=== PATIENT | male | born 1995 | race Hispanic/Latino ===

== ENCOUNTER 2020-03-01 06:34 | Outpatient (CLI) | payer OTHER ==
[2020-03-01 14:57] LABS: Hemoglobin 15.4 g/dL (14.0-18.0); Mean Corpuscular Hemoglobin 29.3 PG (27.0-33.0); Mean Corpuscular Volume 88.8 fl (80.0-100.0); Mean Platelet Volume 11.7 fl (7.4-10.4); Platelet Count 353 10x3/uL (130-400); RBC Distribution Width 12.7 % (11.5-14.5); Red Blood Cell (RBC) Count 5.26 10x6/uL (4.40-5.80); White Blood Cell (WBC) Count 14.8 10x3/uL (4.5-11.0)
[2020-03-01 15:14] LABS: Anion Gap 16 mmol/L (10-20); BUN (Urea Nitrogen) 8 mg/dL (8.9-20.6); Calc. Creatinine Clearance 0 mL/min (70-130); Calcium 9.5 mg/dL (7.8-10.44); Carbon Dioxide 23 mmol/L (22-29); Chloride 104 mmol/L (98-107); Estimated GFR-MDRD Greater than 90; Glucose 192 mg/dL (70-105); Potassium 4.6 mmol/L (3.5-5.1); Sodium 138 mmol/L (136-145)
[2020-03-01 15:20] LABS: PTT 25.1 sec (22.0-33.0); Prothrombin Time 10.5 sec (9.5-12.1)
[2020-03-02 03:16] LABS: SARS-CoV-2 MS2 Positive; SARS-CoV-2 N Gene Negative; SARS-CoV-2 S Gene Negative; SARS-CoV-2 by NAA Not Detected (NotDetected); SARS-CoV-2 orf1ab Negative
--- NOTE | 2020-03-06 08:31 | EKG ---
Test Reason : Blood Pressure : / mmHG Vent. Rate : 112 BPM Atrial Rate : 112 BPM P-R Int : 148 ms QRS Dur : 096 ms QT Int : 322 ms P-R-T Axes : 058 104 018 degrees QTc Int : 439 ms Sinus tachycardia Rightward axis Borderline ECG No previous ECGs available Confirmed by BRYANNA MORIN, ABIGAIL ([id number]) on 03/06/2020 8:31:16 AM Referred By: ENRIKE Confirmed By:ABIGAIL GOULD MD
== END 2020-03-01 06:35 | disposition home or self-care (01) ==
LOC: LABBT 06:34
PROVIDERS: ATTEND Surgery
DX: Z01.818 Encounter for other preprocedural examination (principal); Z20.828 Contact with and (suspected) exposure to other viral communicable diseases; D32.9 Benign neoplasm of meninges, unspecified
CPT/HCPCS: 80048; 85027; 85610; 85730; 87635; 93005; 93010; U0003

== ENCOUNTER 2020-03-01 07:08 | Outpatient (CLI) | payer OTHER ==
--- NOTE | 2020-03-01 09:27 | RAD ---
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 At 9:19 AM 03/01/[address] Dr[address] Blue regarding getting patient scheduled for reprogramming of shunt if necessary. At 9:19 AM 03/01/2020 Dr. Blue immediately replied back acknowledgment with text. FINDINGS: WAREHOUSE SUPER[employer] 3RD SHIFT shunt catheter enters through a right-sided leroy hole near the right coronal suture, with distal t ip near midline intracranially. It descends the soft tissues of the right neck, right chest, and right side of abdomen, and the dista l portion is looped over the pelvis. The distal most tip is excluded from the [id number]. No evidence of discontinuity involving the radiopaque portions. IMPRESSION: No disruption of the ventriculoperitoneal shunt catheter identified.
--- NOTE | 2020-03-01 11:21 | MRI ---
MRI BRAIN WITH AND WITHOUT CONTRAST: DATE: 03/01/2020 HISTORY: 24-year-old male with meningioma and intracranial shunt. D32.9 and Z98.2 COMPARISON: None TECHNIQUE: Multiplanar, multisequence MRI of the brain performed pre- and post-IV injection of gadolinium based contrast agent. FINDINGS: There is a large, approximately 4.5 x 4.5 x 6.2 cm right posterior parieto-occipital mass with lobula r margins, slightly heterogeneous diffuse enhancement (2 small focal regions of central nonenhancement are present), which markedly displaces and distorts the adjacent right parietal and oc cipital parenchyma. It compresses, severely narrows, and anteriorly displaces and distorts the posterior body, trigone, and occipital horn of the right lateral ventricle. This results in approxima tely 0.5 cm right to left midline shift of the septum pellucidum. It causes a large region of vasogenic edema anterior and superior to it, involving the right fonseca r adiata, right centrum semiovale, which extends to the subcortical white matter of the right cerebral vertex, involving frontal and parietal regions. It broadly abuts and distorts and slightly d isplaces to the left, the posterior interhemispheric falx, and the posterior aspect of the superior sagittal sinus, which it possibly partially invades (axial image 81 of 192, series 9), without occlud ing it. In the contralateral left parasagittal anterior upper frontal region, there is a 2.3 x 2.3 x 1.9 cm s moothly circumscribed slightly heterogeneously enhancing mass which broadly abuts and slightly distorts the anterior interhemispheric falx and the superior sagittal sinus. It mildly displaces ligia cent left paramedian frontal lobe parenchyma, but does not cause vasogenic edema. In the posterior fossa, there is bilateral cerebellar hemispheric atrophy. There is gliosis and encep halomalacia lining the right and left sides of a surgical defect of the vermis, which communicates with a widened fourth ventricle. There is no obstructive hydrocephalus. No evidence of recent or remote intra-axial supratentorial hem orrhage. Multiple tiny foci of hemosiderin stains are present in the posterior fossa, related to previous micr ohemorrhages. There is a thin linear signal void from approximately the region of the right coronal suture, through the right frontal centrum semiovale, with distal tip in the right frontal horn slightly anterior to the right side of foramen of Monro. IMPRESSION: 1) moderately large right parieto-occipital mass, presumably a meningioma with somewhat aggressive fe atures, causing significant mass effect, significant vasogenic edema, and extrinsic compression and questionable partial invasion without occlusion, of the posterior aspect of the superior sagittal sin us. This may represent an aggressive or semiaggressive meningioma. 2) a smaller left paramedian frontal meningioma which does not cause vasogenic edema. 3) postsurgical changes in the posterior fossa with probable resection of prior tumor in that locatio n. No evidence of residual or recurrent neoplastic tissue in the posterior fossa. 4) atrophy of cerebellum, and absence of much of the vermis, presumably due to resection 5) ventriculoperitoneal shunt catheter.
--- NOTE | 2020-03-01 11:32 | MRI ---
Magnetic resonance venogram MRV noncontrast head: 03/01/2020 HISTORY: 24-year-old male with meningioma. TECHNIQUE: After application of inferior saturation band at the skull base, 2-D [id number] coronal acquisiti on through the brain performed. Source images and 3-D MIP reconstructions evaluated. FINDINGS: There is absence of flow related signal throughout the entire superior sagittal sinus. There are mult iple surrounding collateral vessels. There is also absence of flow related signal throughout the central portion of the right transverse a nd sigmoid sinuses, and slightly weak flow related signal in the upper portion of the right internal jugular vein. There is weak flow related signal around the filling defect of the right transverse and right sigmoid sinuses. There is good flow related signal involving the inferior sagittal sinus, internal cerebral veins, vei n of Chris, and straight sinus. 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 2) there is flow along recanalized or surrounding peripheral channels paralleling the chronically thr ombosed right transverse and right sigmoid sinuses.
[2020-03-01] MEDS ORDERED: Magnevist 469MG/ML 20 ML VIAL ONE (15:24)
== END 2020-03-01 07:09 | disposition home or self-care (01) ==
LOC: MRI 07:08 → RAD 07:09
PROVIDERS: ATTEND Surgery
DX: D32.9 Benign neoplasm of meninges, unspecified (principal); Z98.2 Presence of cerebrospinal fluid drainage device; Z01.818 Encounter for other preprocedural examination; Z20.828 Contact with and (suspected) exposure to other viral communicable diseases
CPT/HCPCS: 70544; 70553; 75809; 80048; 85027; 85610; 85730; 87635; 93005; 93010; A9579; U0003

== ENCOUNTER 2020-03-01 12:00 | Inpatient (IN) | payer OTHER ==
[2020-03-05] MEDS ORDERED: Bacitracin Zinc Ointment 30 gm TUBE ONE (06:53)
[2020-03-05] MEDS ORDERED: levETIRAcetam 500 MG/100 ML PREMIX BAG ONE (06:57)
[2020-03-05] MEDS ORDERED: levETIRAcetam in NS 100 ML ONE (06:57)
[2020-03-05] MEDS ORDERED: Propofol 1,000 MG/100 ML VIAL IV ONE (06:57)
[2020-03-05] MEDS ORDERED: Albumin 5% 500 ML ONE (06:57)
[2020-03-05] MEDS ORDERED: Fentanyl 250 MCG/5 ML VIAL ONE (06:58)
[2020-03-05] MEDS ORDERED: Sodium Chloride 0.9% 0 ML ONE (07:03)
[2020-03-05] MEDS ORDERED: Thrombin 5000 UNITS/5 ML VIAL ONE (07:03)
[2020-03-05] MEDS ORDERED: Midazolam HCl 2 mg/2 ml Vial ONE (07:10)
[2020-03-05] MEDS ORDERED: Famotidine/PF 20 mg/2ml Vial ONE (07:28)
[2020-03-05] MEDS ORDERED: Albuterol Sulfate HFA (OR ONLY) ONE (09:28)
[2020-03-05] MEDS ORDERED: PROPOFOL 200 MG/20 ML VIAL ONE (09:28)
[2020-03-05] MEDS ORDERED: Esmolol 100 MG/10 ML VIAL ONE (09:28)
[2020-03-05] MEDS ORDERED: Metoprolol Tartrate 5 MG/5 ML VIAL ONE ×2 (09:28→10:13)
[2020-03-05] MEDS ORDERED: Rocuronium Bromide 10 MG/ML (10ML VIAL) ONE (09:28)
[2020-03-05] MEDS ORDERED: Dexamethasone 20 MG/5 ML VIAL ONE (09:28)
[2020-03-05] MEDS ORDERED: Lidocaine 1% PF 5 ML VIAL ONE (09:28)
[2020-03-05] MEDS ORDERED: Ondansetron PF 4 MG/2 ML Vial ONE (09:28)
[2020-03-05] MEDS ORDERED: Morphine Sulfate 2 MG/ML SYRINGE SLOW IVP PRN (10:01)
[2020-03-05] MEDS ORDERED: HYDROmorphone 2 MG/ML VIAL SLOW IVP PRN (10:01)
[2020-03-05] MEDS ORDERED: PACU-Morphine 4MG/ML VIAL SLOW IVP PRN (10:01)
[2020-03-05] MEDS ORDERED: Promethazine HCl 25 MG/ML VIAL IM PRN (10:01)
[2020-03-05] MEDS ORDERED: Promethazine HCl 25 MG/ML VIAL SLOW IVP PRN (10:01)
[2020-03-05] MEDS ORDERED: Ondansetron HCl/PF 4 MG/2 ML Vial IVP PRN (10:01)
[2020-03-05] MEDS ORDERED: Promethazine 25 MG TAB PO PRN (10:07)
[2020-03-05] MEDS ORDERED: Docusate 100 MG CAP PO PRN (10:07)
[2020-03-05] MEDS ORDERED: Acetaminophen 325 MG TAB PO PRN (10:07)
[2020-03-05] MEDS ORDERED: Mag-Al 1200 mg/1200 mg/30 ML UDCUP PO PRN (10:07)
[2020-03-05] MEDS ORDERED: SUGAMMADEX SODIUM 200 MG/2 ML VIAL ONE ×2 (10:13→10:18)
[2020-03-05] MEDS ORDERED: traMADol HCl 50 MG TAB PO PRN (10:16)
[2020-03-05] MEDS ORDERED: Fentanyl 100 MCG/2 ML VIAL ONE (10:19)
--- NOTE | 2020-03-05 11:41 | RAD ---
PORTABLE CHEST: Date; 03/05/2020 HISTORY: Central line placement. FINDINGS: Heart size is within normal limits for portable technique. Left-sided central line has been placed. C atheter tip overlies the superior vena cava/right atrium junction. No pneumothorax. Atelectatic collazo es are seen in the lung bases. IMPRESSION: Placement of left-sided central line. No signs of pneumothorax. POS: AH
[2020-03-05] MEDS ORDERED: Dexamethasone 4 MG TAB PO SCH (12:00)
--- NOTE | 2020-03-05 12:41 | OP ---
DATE OF PROCEDURE: 03/05/2020 LOCATION: OR 11. 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 PROCEDURES PERFORMED: 1. Stereotactic right supratentorial craniotomy for occipital falcine meningioma resection. 2. Use of stereotactic guidance for surgical resection. DESCRIPTION OF PROCEDURE: After informed consent was obtained from the patient and his family, the patient was brought to the OR. Proper patient, pause, and identification were carried out. He was placed under excellent general endotracheal anesthesia and positioned supine on the OR table with his overall body position in a semi-reclined position. [place] sadia was secured to his skull and his cervical spine was slightly flexed to allow for a right parasagittal approach to the right occipital region. Hair was clipped in this area. The Ru[place] was secured. Stereotactic registration occurred with excellent accuracy. Linear saul was drawn out. This region was sterilely cleansed, prepared, and draped. Proper patient, pause, and identification were carried out. We were careful to avoid the shunt obviously with his sadia security. The parasagittal incision was then opened. A circular craniotomy was performed with 2 leroy holes placed over the superior sagittal sinus. The dura was then opened. mass was immediately identified and circumferentially around the mass and also devascularized it off of the falx and lateral wall of superior sagittal sinus. I had excellent decompression of the brain and complete resection of the tumor. The dura was then flapped back in place and the dura approximated and bone secured with titanium plates and screws. The scalp was then closed in anatomic layers. The patient emerged from anesthesia. Job ID: [id number]
[2020-03-05] MEDS: Morphine 2 MG/ML VIAL SLOW IVP PRN ×2 (14:16→19:13)
[2020-03-05] MEDS: CEFAZOLIN 2 GM in Premix Bag 1 BAG IVPB SCH ×2 (14:17→22:21)
[2020-03-05] MEDS: Sodium Chloride 0.9% 1,000 ML IV SCH (14:17)
[2020-03-05] MEDS: Ondansetron PF 4 MG/2 ML Vial IVP PRN (14:28)
[2020-03-05 15:39] VITALS: BMI 31.9
[2020-03-05] MEDS: levETIRAcetam 500 MG TAB PO SCH (20:39)
[2020-03-05] MEDS: Dexamethasone 4 MG TAB PO SCH (20:40)
[2020-03-05] MEDS ORDERED: levETIRAcetam 500 MG TAB PO SCH (21:00)
[2020-03-06] MEDS: Dexamethasone 4 MG TAB PO SCH ×4 (01:51→21:01)
[2020-03-06] MEDS: Morphine 2 MG/ML VIAL SLOW IVP PRN ×3 (03:08→13:50)
[2020-03-06] MEDS: Sodium Chloride 0.9% 1,000 ML IV SCH ×2 (04:32→13:50)
[2020-03-06 05:08] LABS: #Basophils 0.1 thou/uL (0.0-0.2); #Monocytes 1.3 thou/uL (0.11-0.59); #Neutrophils 16.1 thou/uL (1.40-6.50); %Basophils 0.4 % (0.0-1.0); %Eosinophils 0.1 % (0.0-10.0); %Lymphocytes 10.1 % (21.0-51.0); %Monocytes 6.8 % (0.0-10.0); %Neutrophils 82.6 % (42.0-75.0); Hemoglobin 14.2 g/dL (14.0-18.0); Mean Corpuscular HGB CONC 33.6 g/dL (32.0-36.0); Mean Corpuscular Hemoglobin 30.4 pg (27.0-31.0); Mean Corpuscular Volume 90.6 fL (78.0-98.0); Mean Platelet Volume 9.1 fL (7.4-10.4); Platelet Count 287 thou/uL (130-400); RBC Distribution Width 12.2 % (11.5-14.5); Red Blood Cell (RBC) Count 4.65 mill/uL (4.70-6.10); White Blood Cell (WBC) Count 19.5 thou/uL (4.8-10.8)
[2020-03-06 05:28] LABS: Anion Gap 14 mmol/L (10-20); BUN (Urea Nitrogen) 12 mg/dL (8.9-20.6); Calc. Creatinine Clearance 160 mL/min (70-130); Calcium 8.4 mg/dL (7.8-10.44); Carbon Dioxide 24 mmol/L (22-29); Chloride 105 mmol/L (98-107); Estimated GFR-MDRD Greater than 90; Glucose 147 mg/dL (70-105); Potassium 3.8 mmol/L (3.5-5.1); Sodium 139 mmol/L (136-145)
[2020-03-06] MEDS: Levothyroxine 150 MCG TAB PO SCH (06:01)
[2020-03-06] MEDS: CEFAZOLIN 2 GM in Premix Bag 1 BAG IVPB SCH ×3 (06:02→23:27)
[2020-03-06] MEDS: levETIRAcetam 500 MG TAB PO SCH ×2 (08:06→21:01)
[2020-03-06] MEDS: HYDROcodone/Acetaminophen 7.5/325 mg Tablet PO PRN ×2 (08:07→22:21)
--- NOTE | 2020-03-06 08:13 | CT ---
PRELIMINARY REPORT/[facility]/EMERGENCY AFTER HOURS PROCEDURE EXAM: CT Head Without Intravenous Contrast. CLINICAL HISTORY: S/p craniotomy TECHNIQUE: Axial computed tomography images of the head/brain without intravenous contrast. COMPARISON: None provided. FINDINGS: There has been a right posterior parietal craniotomy with surgical change including moderate bilatera l pneumocephalus. Minimal subarachnoid hemorrhage at the surgical site in the posterior left parietal lobe is noted. Shunt catheter tubing identified in the right anterior horn lateral ventricl e. The ventricles are decompressed. There is moderate edema identified along the right cerebral hemisphere. No pre-operative studies are available for review. Continued follow-up is recommended. IMPRESSION: Postoperative changes including right posterior parietal craniotomy with moderate edema and slight munoz barachnoid hemorrhage along the surgical site. Moderate bilateral frontal pneumocephalus. Right shunt catheter tubing is noted.. ELECTRONICALLY SIGNED BY: Anamaria Rivas DO Mar 06, 2020 3:56:54 AM HOUSEHOLD COORDINATOR This report is intended for review by the ordering physician only, in accordance of law. If you recei ve this report in error, please call [facility] at [phone]. FINAL REPORT Emergent after hours noncontrast CT head HISTORY: Postcraniotomy. COMPARISON: MRI brain on 03/01/2020 IMPRESSION: 1. Evidence of right parietal craniotomy defect with excision of the right parietal meningioma. Decre ased attenuation and gas as well as small amount of hemorrhage is seen in the region of the operative bed. 2. Evidence of pneumocephalus anteriorly as well as near the vertex and posteriorly on the right. 3. Prominent area of vasogenic edema in the right frontal parietal lobe which was also seen on the pr ior MRI exam. 4. A ventriculoperitoneal shunt catheter entering via right frontal approach is again seen with tip t erminating near the foramen of [place]. Again noted is effacement of the right lateral ventricle. 5. Left anterior frontal parafalcine meningioma is present but better visualized on post enhanced MRI imaging. 7. Prominent atrophy of each cerebellar hemisphere with a defect seen along the left cerebellar vermi s. Occipital craniotomy defect is seen. 6. Sulcal effacement right cerebral hemisphere likely due to a combination of postoperative changes a nd vasogenic edema. 8. Findings are in agreement with pulmonary report by [facility]. Transcribed Date/Time: 03/06/2020 8:49 AM
--- NOTE | 2020-03-06 11:05 | PRG ---
DATE OF SERVICE: 03/06/2020 Mr. Farmer is postoperative day #1 following right occipital stereotactic craniotomy for tumor resection. Preliminary pathology was consistent with benign meningioma, although we are awaiting final pathology. CT is satisfactory for a gross total resection. The heterogeneity anterior to the resection cavity was compressed intra-axial brain correlating on the preoperative MRI. The patient is at his baseline with a blunted affect. This is Turkmen-speaking only, but does follow commands with no apparent neurologic deficit. He does however have a left-sided visual field cut as expected. We will plan for transfer to the floor and have physical therapy begin working with him. He is on Decadron and his hemodynamics are stable as expected. He has leukocytosis due to the Decadron. We will get an ultrasound of the lower extremities today given his meningioma and medullary blastoma. Job ID: [id number]
[2020-03-06] MEDS: Ondansetron PF 4 MG/2 ML Vial IVP PRN (12:05)
--- NOTE | 2020-03-06 13:14 | ULT ---
EXAM: Bilateral lower extremity venous Doppler US HISTORY: bilateral lower extremity edema and pain. Postop immobility FINDINGS: Grayscale, color-flow, Doppler evaluation, spectral analysis of the bilateral lower extremities venou s structures is performed with 2-D imaging. The bilateral common femoral, superficial femoral, popliteal, posterior tibial, proximal greater saphenous and profunda femoral veins are imaged. There is normal luminal compressibility, flow, and augmentation in the visualized deep venous structu res of the bilateral lower extremities. IMPRESSION: No evidence of a deep vein thrombosis in either lower extremity.
[2020-03-06] MEDS ORDERED: Prevnar 13-Val Conj/PF 0.5 ML SYRINGE IM ONE (15:45)
--- NOTE | 2020-03-06 19:13 | CON ---
DATE OF CONSULTATION: 03/06/2020 HISTORY OF PRESENT ILLNESS: Mr. Farmer is a gentleman, who is in the Critical Care Unit after an operative procedure. Apparently, he had a radiation-induced falcine meningioma with mass effect, requiring right stereotactic supratentorial craniotomy for meningioma resection. It is felt to be related to medulloblastoma at the age of 3. He has a history of hydrocephalus with shunt. He also had craniospinal radiation. Surgery was successful. He answers questions slowly. PHYSICAL EXAMINATION: VITAL SIGNS: He is afebrile. Heart rates in 70s, blood pressure 121/87, respiratory rates in the teens, oximetry is 98. HEENT: His head is bandaged. NECK: Supple. LUNGS: Clear. HEART: Regular rhythm. ABDOMEN: Soft and nontender. EXTREMITIES: Without clubbing, cyanosis, or edema. LABORATORY DATA: White count 19.5, hemoglobin 14.2, platelets 287. Electrolytes are normal. IMPRESSION: Status post craniotomy, clinically stable at this time, adequately protecting his airway. We will follow while he is in the ICU. This is a 70 min consult with greater than 50% of the time spent on the unit with coordination of care. Job ID: [id number] MTDD
[2020-03-06] MEDS: Acetaminophen/Codeine 30-300mg Tablet PO PRN (23:27)
[2020-03-07] MEDS: Sodium Chloride 0.9% 1,000 ML IV SCH ×2 (02:36→15:50)
[2020-03-07] MEDS: HYDROcodone/Acetaminophen 7.5/325 mg Tablet PO PRN (02:36)
[2020-03-07] MEDS: Dexamethasone 4 MG TAB PO SCH ×5 (02:36→23:02)
[2020-03-07] MEDS: Levothyroxine 150 MCG TAB PO SCH (05:41)
[2020-03-07] MEDS: CEFAZOLIN 2 GM in Premix Bag 1 BAG IVPB SCH ×3 (05:41→23:01)
[2020-03-07] MEDS: Ondansetron PF 4 MG/2 ML Vial IVP PRN (08:24)
[2020-03-07] MEDS: levETIRAcetam 500 MG TAB PO SCH ×2 (08:29→20:33)
[2020-03-07] MEDS: Acetaminophen/Codeine 30-300mg Tablet PO PRN (08:30)
--- NOTE | 2020-03-07 09:53 | PRG ---
DATE OF SERVICE: 03/07/2020 SUBJECTIVE: The patient is on postoperative day #2, status post right occipital falcine meningioma and small left frontal parasagittal meningioma resection. He has been stable on the Med/Surg floor. This morning, he is sitting up comfortably, although he does have a child-like demeanor. He will answer my questions appropriately and move all 4s easily. He is about to eat his breakfast. PLAN: We will continue to advance his diet, have him work with PT/OT, and I anticipate a need for inpatient rehabilitation. We will go ahead and start a Decadron taper and keep him on his Keppra. We will follow his progress closely. Job ID: [id number] [facility]
--- NOTE | 2020-03-07 10:01 | PRG ---
DATE OF SERVICE: 03/07/2020 Mr. Farmer is up in bed, eating and interactive. Things are going quite slowly for him and the rehab screen has been entered. Overall, he is making reasonable progress and continue with mobilization. Job ID: [id number]
[2020-03-07] MEDS ORDERED: Sodium Chloride 0.9% 500 ML IV SCH (21:30)
[2020-03-07 21:43] LABS: #Basophils 0.1 thou/uL (0.0-0.2); #Lymphocytes 1.3 thou/uL (1.20-3.40); #Monocytes 0.8 thou/uL (0.11-0.59); #Neutrophils 11.5 thou/uL (1.40-6.50); %Basophils 0.4 % (0.0-1.0); %Eosinophils 0.3 % (0.0-10.0); %Lymphocytes 9.7 % (21.0-51.0); %Monocytes 5.9 % (0.0-10.0); %Neutrophils 83.8 % (42.0-75.0); Hemoglobin 13.8 g/dL (14.0-18.0); Mean Corpuscular HGB CONC 32.6 g/dL (32.0-36.0); Mean Corpuscular Hemoglobin 28.9 pg (27.0-31.0); Mean Corpuscular Volume 88.7 fL (78.0-98.0); Mean Platelet Volume 8.1 fL (7.4-10.4); Platelet Count 256 thou/uL (130-400); RBC Distribution Width 12.1 % (11.5-14.5); Red Blood Cell (RBC) Count 4.79 mill/uL (4.70-6.10); White Blood Cell (WBC) Count 13.7 thou/uL (4.8-10.8)
[2020-03-07 22:06] LABS: ALT (SGPT) 24 U/L (8-55); AST (SGOT) 29 U/L (5-34); Albumin 3.5 g/dL (3.5-5.0); Alkaline Phosphatase 84 U/L (40-110); Anion Gap 10 mmol/L (10-20); BUN (Urea Nitrogen) 12 mg/dL (8.9-20.6); Bilirubin, Total 0.7 mg/dL (0.2-1.2); Calc. Creatinine Clearance 160 mL/min (70-130); Calcium 8.7 mg/dL (7.8-10.44); Carbon Dioxide 26 mmol/L (22-29); Chloride 106 mmol/L (98-107); Estimated GFR-MDRD Greater than 90; Globulin 3.7 g/dL (2.4-3.5); Glucose 166 mg/dL (70-105); Potassium 4.2 mmol/L (3.5-5.1); Protein, Total 7.2 g/dL (6.0-8.3); Sodium 138 mmol/L (136-145)
[2020-03-07 22:19] LABS: Free T4 (Free Thyroxine) 1.16 ng/dL (0.70-1.48); Thyroid Stimulating Hormone 0.1848 uIU/mL (0.35-4.94)
--- NOTE | 2020-03-07 22:28 | PDOC.HHP ---
Hospitalist HPI - History of Present Illness Tachycardia s/p craniotomy History of Present Illness: 24M post surgery for meningioma resection and became tachycardic tonight prompting a consult for medical management. Patient denies pain or significant discomfort. Nurse noted he had voided over 1700ml via mckeon today. Patient has a history of hypopituitarism and has been well managed prior to surgery. Takes levothyroxine which was restarted after surgery. Patient has a history of a medulloblastoma when he was [age] requiring intervention, including radiation. 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 Dr. Blue performed a right sterotactic supratentorial craniotomy on 03/06 to remove a radiation-induced falcine meningioma. Patient has been doing well post-operatively until he became a little tachycardic this evening. Neurosurgery asked the hospitalist team to evaluate. Hospitalist ROS - Review of Systems Constitutional: reports: sweats, malaise Eyes: denies: pain, vision change, conjunctivae inflammation, eyelid inflammatio n, redness, other ENT: denies: ear pain, ear discharge, nose pain, nose discharge, nose congestion, mouth pain, mouth swelling, throat pain, throat swelling, other Respiratory: denies: cough, dry, shortness of breath, hemoptysis, SOB with excertion, pleuritic pain, sputum, wheezing, other Cardiovascular: reports: other. denies: chest pain, palpitations, orthopnea, paroxysmal noc. dyspnea, edema, light headedness Gastrointestinal: denies: nausea, vomiting, abdominal pain, diarrhea, constipation, melena, hematochezia, other Genitourinary: denies: dysuria, frequency, incontinence, hematuria, retention, other Neurological: denies: weakness, numbness, incoordination, change in speech, confusion, seizures, other - Medication Medications: Active Medications Generic Name Dose Route Start Last Admin Trade Name Freq PRN Reason Stop Dose Admin Acetaminophen/Codeine Phosphate 1 tab 03/05/20 10:16 03/07/20 08:30 Acetaminophen/Codeine 30-300mg Tablet PO 1 tab Q6H PRN Administration PAIN-MO Hydrocodone Bitart/Acetaminophen 1 tab 03/05/20 10:07 03/07/20 02:36 Hydrocodone/Acetaminophen 7.5/325 Mg Tablet PO 1 tab Q4H PRN Administration Severe Pain (7-10) Dexamethasone 2 mg 03/07/20 12:00 03/07/20 18:07 Dexamethasone 4 Mg Tab PO 03/09/20 12:01 2 mg Q6HR NINI Administration Sodium Chloride 1,000 mls @ 75 mls/hr 03/05/20 10:15 03/07/20 15:50 Normal Saline 0.9% IV Not Given .[id number] NINI Cefazolin Sodium/Dextrose 2 gm 50 mls @ 100 mls/hr 03/05/20 15:00 03/07/20 15:13 / Device IVPB 50 mls 0700,1500,2300 NINI Administration Levetiracetam 250 mg 03/05/20 21:00 03/07/20 20:33 Levetiracetam 500 Mg Tab PO 250 mg BID NINI Administration Levothyroxine Sodium 150 mcg 03/06/20 06:00 03/07/20 05:41 Levothyroxine 150 Mcg Tab PO 150 mcg 0600 NINI Administration Morphine Sulfate 2 mg 03/05/20 10:07 03/06/20 13:50 Morphine 2 Mg/Ml Vial SLOW IVP 2 mg Q1H PRN Administration Breakthrough Pain Ondansetron HCl 4 mg 03/05/20 10:07 03/07/20 08:24 Ondansetron Pf 4 Mg/2 Ml Vial IVP 4 mg Q8H PRN Administration Nausea/Vomiting Pantoprazole Sodium 40 mg 03/06/20 09:00 03/07/20 08:29 Pantoprazole 40 Mg Tab PO 40 mg DAILY NINI Administration Tramadol HCl 50 mg 03/05/20 10:16 03/06/20 23:28 Tramadol Hcl 50 Mg Tab PO 50 mg Q6H PRN Administration Mild Pain (1-3) Hospitalist History - Past Medical History 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) Endocrine: reports: Hypothyroidism - Past Surgical History Past Surgical History: reports: Other (Craniotomy) - Social History Living Situation: With Family - Exam General Appearance: awake alert Heart: RRR, normal peripheral pulses Heart - other findings: tachycardic Respiratory: CTAB, normal chest expansion Gastrointestinal: soft, non-tender Extremities: no edema Skin: normal turgor Neurological: vision deficit (left side) Hospitalist Results - Labs Result Diagrams: 03/07/20 21:35 03/07/20 21:35 Lab results: WBC 13.7 thou/uL (4.8-10.8) H 03/07/20 21:35 Hgb 13.8 g/dL (14.0-18.0) L 03/07/20 21:35 Hct 42.5 % (42.0-52.0) 03/07/20 21:35 MCV 88.7 fL (78.0-98.0) 03/07/20 21:35 Plt Count 256 thou/uL (130-400) 03/07/20 21:35 Neutrophils % 83.8 % (42.0-75.0) H 03/07/20 21:35 Sodium 138 mmol/L (136-145) 03/07/20 21:35 Potassium 4.2 mmol/L (3.5-5.1) 03/07/20 21:35 Chloride 106 mmol/L (98-107) 03/07/20 21:35 Carbon Dioxide 26 mmol/L (22-29) 03/07/20 21:35 BUN 12 mg/dL (8.9-20.6) 03/07/20 21:35 Creatinine 0.73 mg/dL (0.7-1.3) 03/07/20 21:35 Glucose 166 mg/dL (70-105) H 03/07/20 21:35 Calcium 8.7 mg/dL (7.8-10.44) 03/07/20 21:35 Total Bilirubin 0.7 mg/dL (0.2-1.2) 03/07/20 21:35 AST 29 U/L (5-34) 03/07/20 21:35 ALT 24 U/L (8-55) 03/07/20 21:35 Alkaline Phosphatase 84 U/L (40-110) 03/07/20 21:35 Serum Total Protein 7.2 g/dL (6.0-8.3) 03/07/20 21:35 Albumin 3.5 g/dL (3.5-5.0) 03/07/20 21:35 Hospitalist H&P A/P - Problem (1) Benign meningioma of brain Code(s): D32.0 - BENIGN NEOPLASM OF CEREBRAL MENINGES Status: Acute (2) Tachycardia Code(s): R00.0 - TACHYCARDIA, UNSPECIFIED Status: Acute (3) Hypothyroidism Code(s): E03.9 - HYPOTHYROIDISM, UNSPECIFIED Status: Chronic (4) Hypopituitarism Code(s): E23.0 - HYPOPITUITARISM Status: Chronic - Plan Plan: We have ordered labs; Comp met, CBC, TSH, T4, urine osmolality, AM cortisol and a fluid bolus. Tachycardia had improved somewhat when he was evaluated by hospitalist team. He was alert and answered questions appropriately. We will follow labs and continue to monitor. Home meds were restarted. We appreciate the consult.
[2020-03-08] MEDS: Dexamethasone 4 MG TAB PO SCH ×3 (06:01→21:05)
[2020-03-08] MEDS: Levothyroxine 150 MCG TAB PO SCH (06:01)
[2020-03-08] MEDS: Sodium Chloride 0.9% 1,000 ML IV SCH (06:01)
[2020-03-08] MEDS: CEFAZOLIN 2 GM in Premix Bag 1 BAG IVPB SCH ×3 (06:02→23:08)
[2020-03-08] MEDS: levETIRAcetam 500 MG TAB PO SCH ×2 (09:42→21:04)
--- NOTE | 2020-03-08 10:03 | PRG ---
DATE OF SERVICE: 03/08/2020 SUBJECTIVE: I visited Maxiem on the floor. He is awake, alert, appears comfortable. Last night, there was a concern for development of some tachycardia and increased urine output. He was evaluated by the hospitalist team and labs including cortisol, TSH, free T4, urine osmol as well as CMP were checked. The patient is noted to have some decrease in his TSH and a.m. cortisol level. He was treated with IV fluids and his heart rate and UOP has now normalized. I have discussed the option of inpatient rehabilitation with the assistant case manager, however, the patient does not qualify. They will look into the option of Home Health. OBJECTIVE: On exam this morning, the patient is awake, comfortable. His incision is clean, dry, and intact. He is moving all 4s without difficulty. PLAN: We will continue to have him work with PT/OT here as well as to advance his diet. We will go ahead and remove his Medel and hopefully he will be able to transition to home in the near future with home health at discharge. Job ID: [id number] [facility]
[2020-03-09] MEDS: CEFAZOLIN 2 GM in Premix Bag 1 BAG IVPB SCH (06:02)
[2020-03-09] MEDS: Levothyroxine 150 MCG TAB PO SCH (06:02)
[2020-03-09] MEDS: Sodium Chloride 0.9% 1,000 ML IV SCH ×2 (06:05→08:43)
[2020-03-09] MEDS: levETIRAcetam 500 MG TAB PO SCH (08:51)
[2020-03-09] MEDS ORDERED: Dexamethasone 4 MG TAB PO SCH (09:00)
[2020-03-09 12:26] VITALS: BP 124/82; TEMP 98.4
[2020-03-10] MEDS ORDERED: Dexamethasone 1 MG TAB PO SCH (09:00)
--- NOTE | 2020-03-10 16:54 | DIS ---
DATE OF ADMISSION: 03/05/2020 DATE OF DISCHARGE: 03/09/2020 DISCHARGE SUMMARY: The patient is a 24-year-old male with a history of medulloblastoma resection 20 years ago and shunt dependent hydrocephalus who Dr. Blue recently evaluated for a large right occipital falcine meningioma and a small light left frontal parasagittal meningioma. These are presumably from cranial spinal irradiation for medulloblastoma 20 years ago. He also has a history of panhypopituitarism, but is chronically well compensated. The patient underwent resection of the large right occipital falcine and small left frontal meningiomas. Following the surgery, he was monitored in the ICU for a night and then transitioned to the floor. His neuro exam has remained stable to his baseline. He has an ongoing left visual field cut and dysconjugate gaze, but this is unchanged. He has a pleasant and infantile demeanor. He was moving all 4s without difficulty and ambulating short distances in the room in the hallways. We considered inpatient rehabilitation. Unfortunately, patient did not qualify, so we decided since he had improved and he had good family support to discharge home to family. He was discharged home on Decadron taper and prophylactic Keppra for the next week. He will follow up with Dr. Blue in 2 weeks. Scripts for tramadol and Tylenol 3 sent by their team for discharge prescriptions. Job ID: [id number]
[2020-03-11] MEDS ORDERED: Dexamethasone 1 MG TAB PO SCH (09:00)
== END 2020-03-09 14:48 | disposition home or self-care (01) | DRG 25 ==
LOC: SURG A 03-05 06:03 → EDSTATUS 03-05 12:00 → CCU 03-05 13:15 → SURG B 03-06 14:46
PROVIDERS: ADMIT Surgery; ATTEND Surgery
PROC: 00B70ZZ Excision of Cerebral Hemisphere, Open Approach (ICD-10-PCS; principal; 2020-03-05)
PROC: 00U20JZ Supplement Dura Mater with Synthetic Substitute, Open Approach (ICD-10-PCS; 2020-03-05)
DX: D32.0 Benign neoplasm of cerebral meninges (principal); G93.6 Cerebral edema; E23.0 Hypopituitarism; Y84.2 Radiological procedure and radiotherapy as the cause of abnormal reaction of the patient, or of later complication, without mention of misadventure at the time of the procedure; R00.0 Tachycardia, unspecified; E03.9 Hypothyroidism, unspecified; Z20.828 Contact with and (suspected) exposure to other viral communicable diseases; Z23 Encounter for immunization; Z85.848 Personal history of malignant neoplasm of other parts of nervous tissue; T66.XXXS Radiation sickness, unspecified, sequela; Z79.899 Other long term (current) drug therapy; Z79.890 Hormone replacement therapy
CPT/HCPCS: 36415; 70450; 71045; 80048; 80053; 82533; 83930; 83935; 84439; 84443; 85025; 93970; C1713; C1769; J0690; J1100; J1953; J2250; J2270; J2405; J2704; J3010; J8540; P9045; S0028

== ENCOUNTER 2020-07-22 13:59 | Outpatient (CLI) | payer OTHER ==
[2020-07-22] MEDS ORDERED: Magnevist 469MG/ML 20 ML VIAL ONE (15:00)
== END 2020-07-22 14:00 | disposition home or self-care (01) ==
LOC: TBSIIMAG 13:59
PROVIDERS: ATTEND Surgery
DX: D49.6 Neoplasm of unspecified behavior of brain (principal); G93.9 Disorder of brain, unspecified; Z98.2 Presence of cerebrospinal fluid drainage device; Z98.890 Other specified postprocedural states
CPT/HCPCS: 70553; A9579